=== PATIENT | male | born 1980 | race Caucasian/White ===

== ENCOUNTER 2017-09-19 14:41 | Emergency (ER) | payer MEDICAID ==
[~2017-09-19] VITALS: Ht 175.3 cm; Wt 113.4 kg
[~2017-09-19 14:41] MED LIST: UNK BP MED; [UNRECOGNIZED DRUG - REMARK]
--- NOTE | 2017-09-19 14:41 | NUR ---
Patient was BIBA and taken to bed 02 via gurney.
--- NOTE | 2017-09-19 14:50 | NUR ---
PATIENT PRESENTS TO ED WITH C/O LEG PAIN X 4 DAYS.OPEN WOUND NOTED ON LT FOOT AND LT CALF;EDEMA AND REDNESS NOTED ON LT LEG;DENIES ITCHINESS;DENIES NUMBNESS/TINGLING SENSATION ON LT LEG;DENIES N/V/D; SKIN IS PINK/WARM/DRY; AAOX4; LUNGS CLEAR BL; HR EVEN AND REGULAR; PT DENIES ANY FEVER, CP, SOB, OR COUGH AT THIS TIME; PATIENT STATES PAIN OF 8/10 AT THIS TIME; PATIENT POSITIONED FOR COMFORT; HOB ELEVATED; BEDRAILS UP X2; BED DOWN. ER MD MADE AWARE OF PT STATUS.
[2017-09-19 14:52] VITALS: BP 134/94
--- NOTE | 2017-09-19 15:11 | NUR ---
Dr. Davis evaluating patient at bedside.
[2017-09-19] MEDS ORDERED: CLINDAMYCIN 600 MG in DEXTROSE 5% 50 ML IV ONE (15:20)
--- NOTE | 2017-09-19 15:25 | NUR ---
XRAY at bedside.
[2017-09-19] MEDS ORDERED: CLINDAMYCIN 600 MG/4 ML VIAL ONE (15:36)
[2017-09-19 15:49] LABS: BASOPHILS # (AUTO) 0.1 K/uL (0.00-0.22); BASOPHILS % (AUTO) 1.3 % (0.0-2.0); EOSINOPHILS # (AUTO) 0.6 K/uL (0-0.4); HEMATOCRIT 41.2 % (36-52); HEMOGLOBIN 13.6 g/dL (12.0-18.0); LYMPHOCYTES # (AUTO) 1.9 K/uL (2.0-11.5); LYMPHOCYTES % (AUTO) 17.2 % (20.5-51.1); MEAN CORPUSCULAR HEMOGLOBIN 29 pg (27-31); MEAN CORPUSCULAR HGB CONC 33 g/dL (33-37); MEAN CORPUSCULAR VOLUME 87 fL (80-94); MONOCYTES # (AUTO) 1.2 K/uL (0.8-1.0); MONOCYTES % (AUTO) 11.2 % (1.7-9.3); NEUTROPHILS # (AUTO) 7.3 K/uL (1.8-7.7); NEUTROPHILS % (AUTO) 65.3 % (42.2-75.2); PLATELET COUNT (AUTO) 316 K/uL (140-450); RED BLOOD CELL COUNT(AUTO) 4.76 MIL/uL (4.20-6.10); RED CELL DISTRIBUTION WIDTH 12.5 % (11.6-13.7); WHITE BLOOD COUNT (AUTO) 11.1 K/uL (4.8-10.8)
--- NOTE | 2017-09-19 15:56 | NUR ---
D5 50 ML IS NOT AVAILABLE/BACK ORDER;CONSULTED PHARMACY;CAN USE .9 NS 50 ML FOR CLEOCIN;
[2017-09-19 16:08] LABS: ANION GAP 8.5 (8-16); CREATININE 0.8 mg/dL (0.7-1.3); POTASSIUM 3.5 mmol/L (3.5-5.1)
[2017-09-19 16:13] LABS: ALBUMIN 3.2 g/dL (3.4-5.0); TOTAL BILIRUBIN 0.7 mg/dL (0.0-1.0)
--- NOTE | 2017-09-19 16:24 | NUR ---
ASKED PT IF HE CAN GIVE HIS URINE SPECIMEN;PT STATES "I CAN'T AT THIS TIME"I'LL TRY LATER.
[2017-09-19 16:53] VITALS: BP 147/84
--- NOTE | 2017-09-19 16:53 | NUR ---
Patient discharged with v/s stable. Written and verbal after care instructions given and explained. Patient alert, oriented and verbalized understanding of instructions. Ambulatory with steady gait. All questions addressed prior to discharge. ID band removed. Patient advised to follow up with PMD. Rx of CEPHALEXIN AND CLINDAMYCIN given. Patient educated on indication of medication including possible reaction and side effects. Opportunity to ask questions provided and answered.
== END 2017-09-19 16:53 | disposition home or self-care (01) ==
LOC: MED 14:41
DX: L03.115 Cellulitis of right lower limb (principal); E11.9 Type 2 diabetes mellitus without complications; I10 Essential (primary) hypertension; F20.9 Schizophrenia, unspecified
CPT/HCPCS: 36415; 73630; 80053; 83605; 85025; 85610; 85730; 87040; 93005; 96365; 99285; J3490; Q0092